=== PATIENT | male | born 1950 | race Caucasian/White ===

== ENCOUNTER 2018-10-16 11:06 | Emergency (ER) | payer MEDICARE, MEDICAID ==
[~2018-10-16] VITALS: Ht 177.8 cm; Wt 116.8 kg
[2018-10-16 11:10] VITALS: BP 147/81
--- NOTE | 2018-10-16 11:54 | NUR ---
AT BEDSIDE FOR RECHECK
[2018-10-16] MEDS ORDERED: KETOROLAC 30 MG/1 ML ONE (12:03)
--- NOTE | 2018-10-16 12:17 | NUR ---
PT DECLINING TORADOL AT THIS TIME.
--- NOTE | 2018-10-16 12:28 | NUR ---
PT BACK FROM CT
[2018-10-16] MEDS ORDERED: KETOROLAC 30 MG/1 ML IM ONE (12:30)
--- NOTE | 2018-10-16 12:35 | NUR ---
PT CHANGED IND ABOUT TORADOL AND HAS BEEN MEDICATED. AWAITING CT RESULTS AT THIS TIME
== END 2018-10-16 13:15 | disposition home or self-care (01) ==
LOC: ED 13:09
DX: S16.1XXA Strain of muscle, fascia and tendon at neck level, initial encounter (principal); S43.422A Sprain of left rotator cuff capsule, initial encounter; S09.8XXA Other specified injuries of head, initial encounter; V49.49XA Driver injured in collision with other motor vehicles in traffic accident, initial encounter; Y93.89 Activity, other specified; Y92.410 Unspecified street and highway as the place of occurrence of the external cause; Y99.8 Other external cause status
CPT/HCPCS: 72125; 73030; 96372; 99284; J1885

== ENCOUNTER → 2018-11-21 | Outpatient (CLI) | payer MEDICARE, MEDICAID | END | disposition home or self-care (01) | LOC: CVU 09:30 | PROVIDERS: ATTEND Physician Assistant | DX: I35.1 Nonrheumatic aortic (valve) insufficiency (principal); E78.5 Hyperlipidemia, unspecified | CPT/HCPCS: 0399T; 93306 ==